=== PATIENT | female | born 2000 | race Caucasian/White ===

== ENCOUNTER 2020-08-08 08:52 | Outpatient (REF) | payer OTHER, SELFPAY ==
[2020-08-09 09:47] LABS: CT PCR NOT DETECTED (Not Detect.); NG PCR NOT DETECTED (Not Detect.)
== END 2020-08-08 08:53 | disposition home or self-care (01) ==
LOC: HO.LAB 08:52
PROVIDERS: Visit Provider Advanced Practice Midwife
DX: Z01.419 Encounter for gynecological examination (general) (routine) without abnormal findings (principal); R10.9 Unspecified abdominal pain; Z11.8 Encounter for screening for other infectious and parasitic diseases; Z11.3 Encounter for screening for infections with a predominantly sexual mode of transmission
CPT/HCPCS: 87491; 87591; 88142

== ENCOUNTER 2020-08-23 10:19 | Outpatient (REF) | payer OTHER, SELFPAY ==
[2020-08-23 10:53] LABS: MANUAL DIFF FLAG NO
[2020-08-23 10:54] LABS: Basophils Percent Auto 0.5 % (0-2); Hemoglobin 12.3 g/dl (12.0-16.0); Imm Gran Abs Auto 0.01 X10*3/uL (0.00-0.03); Imm Gran Pct Auto 0.2 % (0.0-0.4); Lymphocytes Absolute Auto 1.9 X10*3/uL (1.2-4.9); Lymphocytes Percent Auto 45.3 % (20-40); Mean Corpuscular HGB Conc 33.2 g/dl (31.0-35.0); Mean Corpuscular Hemoglobin 30.1 pg (27.0-33.0); Mean Corpuscular Volume 90.5 fL (80-98); Mean Platelet Volume 10.4 fL (9.4-12.3); Monocytes Absolute Auto 0.5 X10*3/uL (0.1-1.2); Monocytes Percent Auto 11.9 % (2-11); Neutrophils Absolute Auto 1.7 X10*3/uL (2.0-8.3); Neutrophils Percent Auto 41.1 % (45-73); Platelet Count 256 X10*3/uL (160-400); Red Blood Count 4.09 X10*6/uL (4.20-5.50); Red Cell Distribution Width 12.2 % (11.0-16.0); White Blood Count 4.1 X10*3/uL (4.8-10.8)
[2020-08-23 11:28] LABS: Blood Urea Nitrogen 12 mg/dL (9-16); Calcium 9.1 mg/dL (8.4-10.2); Estimated Glomerular Filt Rate > 60; Glucose Fasting 85 mg/dL (60-99)
[2020-08-23 11:32] LABS: Anion Gap 11 (12-20); Carbon Dioxide 22 mmol/L (22-29); Chloride 108 mmol/L (96-108); Potassium 4.4 mmol/l (3.3-5.1); Sodium 137 mmol/L (135-145)
== END 2020-08-23 10:20 | disposition home or self-care (01) ==
LOC: HO.LAB 10:19
PROVIDERS: PCP Nurse Practitioner Family; Visit Provider Nurse Practitioner Family
DX: F41.9 Anxiety disorder, unspecified (principal); F32.9 Major depressive disorder, single episode, unspecified
CPT/HCPCS: 36415; 80048; 85025

== ENCOUNTER 2021-08-09 07:50 | Outpatient (REF) | payer OTHER, SELFPAY ==
[2021-08-09 10:54] LABS: MANUAL DIFF FLAG NO
[2021-08-09 10:57] LABS: Basophils Percent Auto 0.6 % (0-2); Eosinophils Absolute Auto 0.1 X10*3/uL (0.0-0.4); Eosinophils Percent Auto 0.9 % (0-4); Hematocrit 37.7 % (37.0-47.0); Hemoglobin 12.7 g/dl (12.0-16.0); Imm Gran Abs Auto 0.02 X10*3/uL (0.00-0.03); Imm Gran Pct Auto 0.4 % (0.0-0.4); Lymphocytes Percent Auto 37.6 % (20-40); Mean Corpuscular HGB Conc 33.7 g/dl (31.0-35.0); Mean Corpuscular Hemoglobin 30.1 pg (27.0-33.0); Mean Corpuscular Volume 89.3 fL (80.0-98.0); Mean Platelet Volume 9.9 fL (9.4-12.3); Monocytes Absolute Auto 0.6 X10*3/uL (0.1-1.2); Monocytes Percent Auto 10.1 % (2-11); Neutrophils Absolute Auto 2.7 x10*3/uL (2.0-8.3); Neutrophils Percent Auto 50.4 % (45-73); Platelet Count 331 X10*3/uL (160-400); Red Blood Count 4.22 X10*6/uL (4.20-5.50); Red Cell Distribution Width 12.2 % (11.0-16.0); White Blood Count 5.4 X10*3/uL (4.8-10.8)
[2021-08-09 11:56] LABS: Alanine Aminotransferase 16 U/L (0-31); Albumin Level 4.3 g/dL (3.5-5.0); Alkaline Phosphatase 50 U/L (39-117); Anion Gap 13 (12-20); Aspartate Amino Transferase 21 U/L (5-31); Bilirubin Total 0.6 mg/dL (0.0-1.0); Blood Urea Nitrogen 10 mg/dL (9-16); Calcium 9.6 mg/dL (8.4-10.2); Carbon Dioxide 23 mmol/L (22-29); Chloride 105 mmol/L (96-108); Cholesterol 172 mg/dL; Estimated Glomerular Filt Rate > 60; Glucose Fasting 82 mg/dL (60-99); HDL Cholesterol 53 mg/dL; LDL Cholesterol Calculated 103 mg/dl; Potassium 4.3 mmol/L (3.3-5.1); Sodium 137 mmol/L (135-145); Total Protein 7.4 g/dL (6.5-8.0); Triglycerides 80 mg/dL
[2021-08-09 12:19] LABS: TSH reflex Free T4 1.89 uIU/mL (0.32-4.0)
[2021-08-14 16:21] LABS: Transglutaminase IgA <1.0 U/mL
== END 2021-08-09 07:51 | disposition home or self-care (01) ==
LOC: HO.WFDLDS 07:50
PROVIDERS: Visit Provider Family Medicine
DX: Z00.00 Encounter for general adult medical examination without abnormal findings (principal); R19.7 Diarrhea, unspecified
CPT/HCPCS: 36415; 80053; 80061; 83516; 84443; 85025

== ENCOUNTER 2021-08-10 18:04 | Outpatient (REF) | payer OTHER, SELFPAY ==
[2021-08-10 20:07] LABS: Leukocytes Stool Qualitative NEGATIVE (NEGATIVE)
[2021-08-11 08:39] LABS: CDiff Gene PCR NEGATIVE (Negative)
== END 2021-08-10 18:05 | disposition home or self-care (01) ==
LOC: HO.LNP 18:04
PROVIDERS: Visit Provider Family Medicine
DX: R19.7 Diarrhea, unspecified (principal)
CPT/HCPCS: 87045; 87046; 87493; 89055

== ENCOUNTER 2021-08-14 07:48 | Outpatient (REF) | payer OTHER, SELFPAY ==
[2021-08-14 14:02] LABS: CT PCR NOT DETECTED (Not Detect.); NG PCR NOT DETECTED (Not Detect.)
== END 2021-08-14 07:49 | disposition home or self-care (01) ==
LOC: HO.LAB 07:48
PROVIDERS: PCP Family Medicine; Visit Provider Advanced Practice Midwife
DX: Z01.419 Encounter for gynecological examination (general) (routine) without abnormal findings (principal); Z20.2 Contact with and (suspected) exposure to infections with a predominantly sexual mode of transmission
CPT/HCPCS: 87491; 87591

== ENCOUNTER 2022-06-13 10:49 | Outpatient (REF) | payer OTHER, SELFPAY ==
[2022-06-13 14:27] LABS: Hematocrit 36.7 % (37.0-47.0); Hemoglobin 12.3 g/dl (12.0-16.0); Mean Corpuscular HGB Conc 33.5 g/dl (31.0-35.0); Mean Corpuscular Hemoglobin 29.8 pg (27.0-33.0); Mean Corpuscular Volume 88.9 fL (80.0-98.0); Mean Platelet Volume 10.6 fL (9.4-12.3); Platelet Count 274 X10*3/uL (160-400); Red Blood Count 4.13 X10*6/uL (4.20-5.50); Red Cell Distribution Width 12.2 % (11.0-16.0); White Blood Count 5.1 X10*3/uL (4.8-10.8)
[2022-06-13 14:45] LABS: Alanine Aminotransferase 16 U/L (0-31); Albumin Level 4.7 g/dL (3.5-5.0); Alkaline Phosphatase 63 U/L (39-117); Anion Gap 14 (12-20); Aspartate Amino Transferase 27 U/L (5-31); Bilirubin Total 2.1 mg/dL (0.0-1.0); Blood Urea Nitrogen 12 mg/dL (9-16); Calcium 10.1 mg/dL (8.4-10.2); Carbon Dioxide 23 mmol/L (22-29); Chloride 108 mmol/L (96-108); Cholesterol 174 mg/dL; Estimated Glomerular Filt Rate > 60; Glucose Fasting 84 mg/dL (60-99); HDL Cholesterol 65 mg/dL; LDL Cholesterol Calculated 104 mg/dl; Sodium 141 mmol/L (135-145); Total Protein 7.3 g/dL (6.5-8.0); Triglycerides 28 mg/dL
[2022-06-13 15:07] LABS: TSH reflex Free T4 0.74 uIU/mL (0.32-4.0)
[2022-06-14 08:25] LABS: HBS Num1 85.77 mIU/mL (0-7.99); HBc Num1 0.09 S/CO (0.00-0.79); Hepatitis B Core Antibody Nonreactive (Nonreactive); Hepatitis B Surface Antigen Negative (Negative); ~HepC Num1 0.07 S/CO (0.00-0.79); ~Hepatitis B Surface Antibody REACTIVE (Nonreactive); ~Hepatitis C Antibody Nonreactive (Nonreactive)
[2022-06-15 07:01] LABS: ~Hepatitis A Antibody IgM Nonreactive (Nonreactive)
== END 2022-06-13 10:50 | disposition home or self-care (01) ==
LOC: HO.WFDLDS 10:49
PROVIDERS: Visit Provider Hospitalist
DX: Z00.00 Encounter for general adult medical examination without abnormal findings (principal); Z57.9 Occupational exposure to unspecified risk factor
CPT/HCPCS: 36415; 80053; 80061; 84443; 85027; 86704; 86706; 86709; 86803; 87340

== ENCOUNTER 2022-08-13 08:50 | Outpatient (REF) | payer OTHER, SELFPAY ==
[2022-08-13 11:57] LABS: Alanine Aminotransferase 12 U/L (0-31); Albumin Level 4.5 g/dL (3.5-5.0); Alkaline Phosphatase 68 U/L (39-117); Aspartate Amino Transferase 20 U/L (5-31); Bilirubin Direct 0.4 mg/dL (0.0-0.5); Bilirubin Total 1.1 mg/dL (0.0-1.0); Total Protein 6.9 g/dL (6.5-8.0)
== END 2022-08-13 08:51 | disposition home or self-care (01) ==
LOC: HO.WFDLDS 08:50
PROVIDERS: Visit Provider Hospitalist
DX: R74.8 Abnormal levels of other serum enzymes (principal)
CPT/HCPCS: 36415; 80076

== ENCOUNTER 2022-10-16 15:04 | Outpatient (REF) | payer OTHER, SELFPAY ==
[2022-10-18 21:32] LABS: TS Negative Control Passed; TS Panel A 1; TS Panel B 0; TS Positive Control Passed; TSpotTB Negative (Negative)
== END 2022-10-16 15:05 | disposition home or self-care (01) ==
LOC: HO.LAB 15:04
PROVIDERS: Visit Provider Family Medicine
DX: Z02.0 Encounter for examination for admission to educational institution (principal)
CPT/HCPCS: 36415; 86481

== ENCOUNTER 2023-08-22 12:34 | Outpatient (REF) | payer OTHER, SELFPAY | END 2023-08-22 12:35 | disposition home or self-care (01) | LOC: HO.LNP 12:34 | PROVIDERS: Visit Provider Advanced Practice Midwife | DX: Z01.419 Encounter for gynecological examination (general) (routine) without abnormal findings (principal) | CPT/HCPCS: 88142 ==

== ENCOUNTER 2023-08-22 12:34 | Outpatient (AMB) | payer OTHER, SELFPAY ==
--- NOTE | 2023-08-22 12:51 | MHC.OFFVIS ---
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 Doing well with no concerns. 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 On Val, no concerns. , sexually active. She denies vaginal itching and irritation. STI screening offered; she declines. Denies family history of breast, ovarian or colon cancer. Last pap smear 2019, negative. She denies any contraindications to control such as: migraines with aura, history of DVT or pulmonary emboli, high blood pressure, liver disease, thrombolic disorders, Lupus, +KVNG, breast cancer, or smoking. [facility] Medical History Raynaud disease Anxiety and depression Family History Maternal Aunt Ovarian cancer Mother Endometriosis Father No problems noted. 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 Sexual orientation: Straight/Heterosexual Gender identity: Female Cognitive needs: No Hearing needs: No Vision needs: No Female Reproductive History Menstrual control method: pills Total pregnancies: 0 Date of last pap smear: 08/08/20 (neg) Review of Systems Const All systems reviewed & are unremarkable except as noted in HPI and below Reports as per HPI Eyes Reports no additional complaints ENT Reports no additional complaints Card Reports no additional complaints Resp Reports no additional complaints GI Reports as per HPI and Reports no additional complaints Reports as per HPI Musc Reports no additional complaints Skin/Breast Reports as per HPI Neuro Reports no additional complaints Psych Reports no additional complaints Endo Reports no additional complaints Alex/Lymph Reports no additional complaints Aller/Immun Reports no additional complaints Physical Exam Vital Signs: Last Vital Signs BP 100/64 08/22/23 12:52 BMI result Body Mass Index 18.7 Const General: cooperative, healthy appearing, no acute distress, well developed and alert Orientation/consciousness: patient oriented x3 HEENT Head: Yes normal to inspection Eyes General: appearance normal, both eyes and all related structures Neck Neck: Yes normal visual inspection Thyroid: Thyroid normal Chest Chest palpation & inspection: normal inspection of the chest and other (no puckering, dimpling, peau de orange, retraction, discharge, masses) Breast/axilla inspection: normal inspection of the breasts Breast/axilla palpation: normal palpation of the breasts Resp Effort & Inspection: normal respiratory effort GI Inspection: Yes normal to inspection Palpation (GI): Soft to palpation Rectal Exam - Female: deferred General: Yes bladder normal to palpation External Female Exam: normal external appearance and normal appearance of the urethra Speculum Exam - Vagina: normal appearance of the vagina, normal palpation and normal vaginal discharge Speculum Exam - Cervix: normal appearance of the cervix and normal palpation Bimanual exam- vagina & uterus: normal bimanual exam, normal palpation, uterine size normal, bladder normal to palpation, normal palpation and non-tender Bimanual Exam- Adnexa, other: no masses Skin General skin exam: no rashes or lesions noted Rashes: no rashes Neuro General: patient oriented x3 Cognition (Neuro): normal cognition Extrem General: Yes normal to inspection Psych Attitude: cooperative Thought process: Normal thought process present Assessment & Plan Assessment & Plan (1) Encounter for well woman exam with routine gynecological exam: Code(s): Z01.419 - Encounter for gynecological examination (general) (routine) without abnormal findings Plan Discussed: Current recommendations for pap smears per ASCCP guidelines. Breast awareness and periodic breast exams. Maintain a healthy lifestyle including a well balanced diet and routine exercise. control hormone use warnings: go to ER if and loss of vision, blindness, severe headache, chest pain or difficulty breathing, severe abdominal pain, or any pain or swelling in an extremity. All of her questions and concerns were addressed to the best of my ability. RTO in one year for annual display director examination. Orders: Orders Pap Smear Today Z01.419 - Encounter for gynecological examination (general) (routine) without abnormal findings Medications: Refilled norethindrone (contraceptive) (Val) 0.35 mg PO DAILY 84 tabs 4RF Coding Level of Care Code Est Pt Prev Care 18-39y(91967) Diagnoses Encounter for well woman exam with routine gynecological exam Z01.419
[2023-08-22 12:52] VITALS: BP 100/64; BMI 18.7
== END 2023-08-22 13:22 | disposition home or self-care (01) ==
PROVIDERS: Visit Provider Advanced Practice Midwife
DX: Z01.419 Encounter for gynecological examination (general) (routine) without abnormal findings (principal)
CPT/HCPCS: 99395

== ENCOUNTER → 2024-03-13 08:23 | Outpatient (AMB) | payer OTHER, SELFPAY ==
[2024-03-13 08:25] VITALS: PULSE 88; O2SAT 99; BMI 18.7
--- NOTE | 2024-03-13 08:25 | MHC.OFFWIV ---
Intake Vital Signs 03/13/24 08:25 Height 5 ft 8 in Weight 123 lb BMI 18.7 Pulse 88 Pulse Source Pulse Oximeter Pulse Oximetry (%) 99 Oxygen Delivery Method Room Air Intake Visit Reasons: Poison jeancarlos Patient Tobacco Use Status: Never used Tobacco Allergies No Known Allergies Allergy (Verified 03/13/24 08:26) Medication List - Last Reconciled 03/13/24 by Vanessa Campbell, CLINICAL QUALITY ASSURANCE ASSOCIATE-BC norethindrone (contraceptive) (Val) 0.35 mg PO DAILY HPI HPI Comments History of Present Illness Details Here today with a complaints of a poison jeancarlos rash affecting her face and left arm. Reports that this started yesterday after exposure to poison jeancarlos while in the [place] chasing her dog. The fresh for started around her right eye. Then progress to around the left eye. And down the right side of her face. A little bit on her neck. One patch on her left arm. She offers no visual complaints. No breathing concerns. In addition to tech new scrubs, treatment at home includes Advil which seemed to help some of the swelling. Plan for a prednisone taper. [facility] Medical History Raynaud disease Anxiety and depression Family History Maternal Aunt Ovarian cancer Mother Endometriosis Father No problems noted. 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 Some intact blisters around left periorbit. Some mild edema of upper and lower lid on the right. No visual deficits. No signs of secondary cellulitis. Respirations are normal. Managing secretions. Talking in full sentences. One single patch on the left posterior lower arm. Assessment & Plan Assessment & Plan (1) Poison jeancarlos dermatitis: Code(s): L23.7 - Allergic contact dermatitis due to plants, except food Plan: . Medications: New prednisone 5 tabs x 2 days, 4 tabs x 2 days, 3 tabs x 2 days, 2 tabs x 2 days, 1 tab x 2 days and then STOP. 10 mg PO DIRECTED 30 tabs 0RF 10 days Patient Instructions: Advised to take the medication daily with food. If new lesions crop up while on the taper advised to return to the office as we may need to hold the taper and/or extend the taper to prevent recurrence. Advised to cover the areas to prevent spread using something like a Tegaderm. Wash linen to also help prevent spread. Continue to use the [id number] skin scrubs to help protect the rest of your skin. Do your best to avoid contact. Coding Level of Care Code Est Pt Level 3 (68642) Diagnoses Poison jeancarlos dermatitis L23.7
== END ==
PROVIDERS: PCP Internal Medicine; Visit Provider Nurse Practitioner Family
DX: L23.7 Allergic contact dermatitis due to plants, except food (principal)
CPT/HCPCS: 99213

== ENCOUNTER 2024-08-28 11:15 | Outpatient (AMB) | payer OTHER, SELFPAY ==
--- NOTE | 2024-08-28 11:27 | A.OFFVIS_ITS ---
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 She has been on control pills since she was a teenager because of severe severe painful crampy debilitating menses and her project management it specialist put her on control pills also citing a concern for family history of endometriosis sent to prevent scarring for the future. She has not had a periods since 2020 and she has been managed on some version of continuous so almost continuous OCPs and several years was ago switched to norethindrone only OCPs by provider secondary to her history of Raynauds. She loves not having a. She feels great she also knows that weight is an issue and she has been training hard because she has been doing a stint at the [employer]. And she lost weight during this time despite efforts to maintain it and felt her breast tissue diminish etc.. She is sexually active with her but has zero concerns about STIs and declines testing she is not due for Pap smear this visit her last Pap smear was negative. She has no negative side effects to the OCPs other than the aforementioned lack menses which is for her not really a negative but she did want to mentione it and discuss it. On questioning she and her are thinking about starting a family but he is going to be deployed in October and we will be gone for year and they are hoping to spend some time together when he comes home and then start trying to have a family.. She is in fact somewhat dreading the return of regular menses when she goes off OCPs to try and conceive. [facility] Medical History Raynaud disease Anxiety and depression Family History Maternal Aunt Ovarian cancer Mother Endometriosis Father No problems noted. 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 Sexual orientation: Straight/Heterosexual Gender identity: Female Cognitive needs: No Hearing needs: No Vision needs: No Female Reproductive History Menstrual Age of Menarche: 13 Duration of menses: other control method: pills Total pregnancies: 0 Date of last pap smear: 09/12/23 (neg.neg) History of abnormal pap smear: No Physical Exam Vital Signs: Last Vital Signs BP 118/68 08/28/24 11:29 BMI result Body Mass Index 19.5 Const General: healthy appearing, comfortable, no acute distress, well developed and alert Nutritional Appearance: average body habitus Orientation/consciousness: patient oriented x3 Limitations: no limitations HEENT Head: Yes normocephalic Neck Neck: Yes normal visual inspection Chest Chest palpation & inspection: normal inspection of the chest Breast/axilla inspection: normal inspection of the breasts and normal inspection of the axillae Breast/axilla palpation: normal palpation of the breasts and normal palpation of the axillae Resp Effort & Inspection: normal respiratory effort GI Inspection: Yes normal to inspection, No Abdominal wall edema and No distended Palpation (GI): Soft to palpation and nontender Other: Normal pink and moist very normal appearing flocular white discharge. Cervix nulliparous smooth healthy mobile nontender anterior uterus is slightly posterior but midposition neither anteverted retroverted adnexa nontender good tone w Kegel General: Yes bladder normal to palpation External Female Exam: normal external appearance and normal appearance of the urethra Speculum Exam - Vagina: normal appearance of the vagina, normal palpation and normal vaginal discharge Speculum Exam - Cervix: normal appearance of the cervix, normal palpation and nontender Bimanual exam- vagina & uterus: normal bimanual exam, normal palpation, uterine size normal, bladder normal to palpation, consistency normal, normal palpation, uterine mobility normal, uterine shape normal, No Cervical tenderness present, non-tender and no cervical motion tenderness Bimanual Exam- Adnexa, other: normal adnexae, no masses, normal and No adnexal tenderness Neuro General: patient oriented x3 Assessment & Plan Assessment & Plan (1) Well woman exam with routine gynecological exam: Code(s): Z01.419 - Encounter for gynecological examination (general) (routine) without abnormal findings Category: Medical (2) Cervical cancer screening: Comment: 08/22/2023 Pap is negative. Code(s): Z12.4 - Encounter for screening for malignant neoplasm of cervix Category: Medical (3) Painful menstrual periods: Comment: Has been managed on continuous OCPs for years with resultant absence of menstruation and is happy with this for now. 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 She has been on control pills since she was a teenager because of severe severe painful crampy debilitating menses and her project management it specialist put her on control pills also citing a concern for family history of endometriosis sent to prevent scarring for the future. She has not had a periods since 2020 and she has been managed on some version of continuous so almost continuous OCPs and several years was ago switched to norethindrone only OCPs by provider secondary to her history of Raynauds. She loves not having a. She feels great she also knows that weight is an issue and she has been training hard because she has been doing a stint at the [employer]. And she lost weight during this time despite efforts to maintain it and felt her breast tissue diminish etc.. She is sexually active with her but has zero concerns about STIs and declines testing she is not due for Pap smear this visit her last Pap smear was negative. She has no negative side effects to the OCPs other than the aforementioned lack menses which is for her not really a negative but she did want to mentione it and discuss it. On questioning she and her are thinking about starting a family but he is going to be deployed in October and we will be gone for year and they are hoping to spend some time together when he comes home and then start trying to have a family.. She is in fact somewhat dreading the return of regular menses when she goes off OCPs to try and conceive. Reviewed all of the above with her then is quite as understandable that with her low BMI and heavy workout regimen with being at the [employer] the she would be without menses for so many years also because of the endometrial suppression of the OCPs. Given all this while on the face of it at 1st blush it maybe concerning, it is completely understandable as she is being managed with suppressive hormones at this time. When it comes time for her to go off OCPs and allow for return of menses, discussed that it would be recommended for her to really keep very close track of her symptoms and discharge and return to fertility in every way, and wants full menses return to attempt to conceive. Discussed possible ways of framing the change in experience of menses. We will continue on these norethindrone only OCPs as they are serving her very well at this time prescription sent to her pharmacy of choice. She has no other health concerns this tone discussed eating healthy and adding a multivitamin with folic acid prior to being open to conception. Medications: Refilled norethindrone (contraceptive) (Val) 0.35 mg PO DAILY 84 tabs 4RF Coding Level of Care Code Est Pt Prev Care 18-39y(99778) Diagnoses Well woman exam with routine gynecological exam Z01.419 Cervical cancer screening Z12.4 Painful menstrual periods N94.6 control counseling Z30.09
[2024-08-28 11:29] VITALS: BP 118/68; BMI 19.5
== END 2024-08-28 12:11 | disposition home or self-care (01) ==
LOC: HO.HWSM 11:15
PROVIDERS: PCP Internal Medicine; Visit Provider Advanced Practice Midwife
DX: Z01.419 Encounter for gynecological examination (general) (routine) without abnormal findings (principal); Z12.4 Encounter for screening for malignant neoplasm of cervix; N94.6 Dysmenorrhea, unspecified; Z30.09 Encounter for other general counseling and advice on contraception
CPT/HCPCS: 99395

== ENCOUNTER → 2024-08-28 11:15 | Outpatient (BNVA) | payer OTHER, SELFPAY | PROVIDERS: PCP Internal Medicine; Visit Provider Advanced Practice Midwife ==

== ENCOUNTER 2024-10-29 08:53 | Outpatient (AMB) | payer OTHER, SELFPAY ==
--- NOTE | 2024-10-29 12:31 | A.OFFPC_ITS ---
Intake Visit Reasons: re-establish care/ PE request Allergies No Known Allergies Allergy (Verified 10/29/24 12:32) Medication List - Last Reconciled 10/29/24 by GUERLINE Espinoza- norethindrone (contraceptive) (Val) 0.35 mg PO DAILY Tobacco use date assessed: 10/29/24 Dental Screening Dental Screen Date: 10/29/24 Did you have a dental visit in the last 12 months?: Yes Did you have a dental problem in the last 6 months where you did not have access to dental care?: No Was dental information given to patient?: Patient has dentist HPI HPI Comments History of Present Illness Details TELEVIDEO USING DOXProxima CancionITY 23-year-old female with generalized anxi ety disorder, major depressive disorder, Raynaud's disease, family history of ovarian cancer (maternal great aunt), elevated bilirubin, family hx of pancreatic cancer (paternal uncle age 72) SurgHx: None FHx: Mom and her sisters: Endometriosis. Great Aunt: Lung Ca & Ovarian. mGF: Heart disease, Diabetes SocHx: Nonsmoker. 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 She reports attempting ywxp-nrv-htsckhu treatments from [facility] with no success; instead, she has noticed an increase in the number of warts. The condition was first noted prior to this visit, and no significant interventions have been successful in managing the warts. The patient sought further advice on possible more aggressive treatment options. CHICHI/MDD well controlled w/o meds or counseling. Health Maintenance - Regular annual physical examination fo r occupational requirements. - Discussion regarding potential future laboratory evaluations, including non- fasting blood work for a comprehensive health assessment, considering past elevated bilirubin. - Encouragement to maintain annual gynec ological examinations. - Negative anxiety and depression screen ing. - Flu vaccination discussed but not perf ormed; patient recently experienced flu- like symptoms. - Counseling on moderating alcohol consu mption for health optimization. - Inquiry on lack of need for STD screen ing given current marital status. Social History - for three years. - Engages in light alcohol consumption, primarily wine, approximately five days a week, with acknowledgment of intent to reduce intake for health reasons. - Has a stepdaughter and expressed satis faction with current family status. - Employed Review of Systems - General: Denies little interest or ple asure in activities; negative for feeling down, depressed, or hopeless. - Sleep: Denies trouble falling asleep o r staying asleep. - Neurological/Psychiatric: Denies poor appetite, feelings of worthlessness, trouble concentrating, or any suicidal ideation. Reports occasional, context- appropriate nervousness but controls it well. Denies difficulty relaxing or respiratory symptoms. - Constitutional: Feeling tired due to r ecent cold; denies unexplained weight changes or fever. Physical Exam limited by video visit Awake alert NAD Smiling, engaging and appropriate Speaking in full sentences Mood and affect appropriate Discussion Notes During the encounter, I discussed the management options for the patient's plantar warts, explaining the referral process to podiatry for professional intervention. I provided the name and contact details of the dixonac operator, Dr. Murillo, and facilitated the referral. I also affirmed the protocol for uploading annual physical form via the portal for occupational documentation. Health maintenance topics included a discussion of alcohol consumption, emphasizing moderation for potential health benefits. I reassured the patient regarding negative screenings for anxiety and depression following her previous history. I reminded the patient about the importance of annual check-ins to maintain active patient status, citing office policy. Lastly, I encouraged her to pursue her planned laboratory work for a comprehensive health check. Plan - Verrucae plantaris Plantar Warts): I tierra rojas referred the patient to podiatry for a definitive evaluation and removal of the plantar warts on the left heel by Dr. Murillo. Patient has agreed to contact the office to arrange a visit. - Health maintenance labs: I ordered a p prince of non-fasting blood tests including complete blood count, liver function tests noting prior elevated bilirubin, and screening for kidney, electrolyte, thyroid function, , vitamin D, and diabetes. - Psychosocial health: Screenings for de pression and anxiety were conducted and found to be negative; no further action required currently. Encouraged continued health monitoring. - Annual exam requirement: Patient to in itiate annual visitation to avoid new patient scheduling delays. - Alcohol consumption: Discussed moderat ion and potential health impacts. No immediate intervention necessary. - Chronic conditions and risk factors: D ocumented family history of cancer for ongoing awareness and monitoring. Patient was informed and verbally consented to the use of an ambient scribe for clinic note documentation during this visit. [facility] Medical History (Updated 10/29/24 @ 14:33 by [facility] Anxiety and depression Elevated liver enzymes Raynaud disease Family History (Updated 10/29/24 @ 12:55 by Vanessa Campblel [facility]) Maternal Aunt Ovarian cancer Mother Endometriosis Father No problems noted. 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 1. Little interest or pleasure in doing things: not at all 2. Feeling down, depressed, or hopeless: not at all 3. Trouble falling or staying asleep, or sleeping too much: not at all 4. Feeling tired or having little energy: not at all 5. Poor appetite or overeating: not at all 6. Feeling bad about yourself - or that you are a failure or have let yourself or your family down: not at all 7. Trouble concentrating on things, such as reading the newspaper or watching television: not at all 8. Moving or speaking so slowly that other people could have noticed. Or the opposite - being so fidgety or restless that you have been moving around a lot more than usual: not at all 9. Thoughts that you would be better off or of hurting yourself in some way: not at all Total score: 0 Depression Screening Interpretation: Negative Depression Screening Done: Yes 43177 - PHQ-9 Billing: Yes Source: Developed by Drs. Kvng L. Charlotte Joe, Luis F Rodriguez and colleagues, with an educational jensen from [employer]. Thrive Questionnaire Date Thrive assessed: 10/19/24 I am a: Patient What is your living situation today?: I have a steady place to live Within the past 12 months, did the food you bought not last and you didn't have the money to get more?: Never true Within the past 12 months, did you worry whether your food would run out before you got money to buy more?: Never true Do you have trouble paying for medicines?: No Do you have trouble getting transportation to medical appointments?: No Do you have trouble paying your heating and electricity bill?: No Do you have trouble taking care of your child, family member or friend?: No Do you have trouble with day-to-day activities such as bathing, preparing meals, shopping, managing finances, etc.?: No Are you currently unemployed and looking for a job?: No Are you interested in more education?: Yes Please select the resources that you would like help with: None Currently or been in a relationship where the following occur: No concerns reported THRIVE Score: 0 AUDIT C Alcohol Use Questionnaire (AUDIT-C) 1. How often do you have a drink containing alcohol?: 4 or more times a week 2. How many drinks containing alcohol do you have on a typical day when you are drinking?: 3 or 4 3. How often do you have six or more drinks on one occasion?: Less than monthly Total Score: 6 Score Reviewed/Action Taken: Yes CHICHI-7 AMB Questionnaire CHICHI-7 Date CHICHI - 7 assessed: 10/29/24 Feeling nervous, anxious, or on edge: 1 = Several days Not being able to stop or control worryin = Not at all Worrying too much about different things: 0 = Not at all Trouble relaxin = Not at all Being so restless that it is hard to sit still: 0 = Not at all Becoming easily annoyed or irritable: 0 = Not at all Feeling afraid as if something awful might happen: 0 = Not at all Total CHICHI-7 score (0-4 normal; 5-9 mild; 10-14 moderate; 15-21 severe): 1 Source: Developed by Charlotte Hollingsworth, Luis F Rodriguez and colleagues, with an educational jensen from [employer]. CHICHI-7 Assessment Billing CHICHI-7 Assessment Tool: CHICHI-7 Assessment 40121 Physical exam (Primary Care) Tobacco/Smoking Status: Tobacco use Status Tobacco use date assessed 06/13/22 08/13/22 08:29 Patient Tobacco Use Status Never used Tobacco 03/13/24 08:27 e-Cigarette/Vaping Use Never Used 08/22/23 13:22 Depression Screening Interpretation: Negative Thrive Assessment: Date of Thrive Assessment Date Thrive assessed 10/19/24 10/22/24 11:51 Currently or been in a relationship where the following occur: No concerns reported Telehealth Telehealth Telehealth Platform: [employer] Location of provider rendering services: practice address Location of patient: address on file Patient Identification confirmed using: Name, : Yes Telehealth method: video Patient verbally consented to treatment: Yes Patient verbally consented to billing insurance company: Yes Patient informed of any privacy concerns related to visit: Yes Minutes spent on Phone/Video with Pt.: 18 Coding Level of Care Code New Pt Prev Care 18-39yr(62195 Diagnoses Encounter for general adult medical examination without abnormal findings Z00.00 CHICHI (generalized anxiety disorder) F41.1 Mild episode of recurrent major depressive disorder F33.0 Major depression episode severity: mild Elevated bilirubin R17 Family history of ovarian cancer Z80.41 Plantar wart of left foot B07.0 Laboratory exam ordered as part of routine general medical examination Z00.00 Family history of pancreatic cancer Z80.0 Additional Codes PHQ-9 - 04457 - PHQ-9 Billing: Yes ([id number]) CHICHI-7 Assessment Billing - CHICHI-7 Assessment Tool: CHICHI-7 Assessment 71388 ([id number]) Assessment & Plan Assessment & Plan (1) Encounter for general adult medical examination without abnormal findings: Code(s): Z00.00 - Encounter for general adult medical examination without abnormal findings (2) CHICHI (generalized anxiety disorder): Code(s): F41.1 - Generalized anxiety disorder Category: Medical (3) MDD (major depressive disorder), recurrent episode: Code(s): F33.9 - Major depressive disorder, recurrent, unspecified Category: Medical Qualifiers: Major depression episode severity: mild Qualified Code(s): F33.0 - Major depressive disorder, recurrent, mild (4) Elevated bilirubin: Code(s): R17 - Unspecified jaundice Category: Medical (5) Family history of ovarian cancer: Comment: MATERNAL GREAT AUNT Code(s): Z80.41 - Family history of malignant neoplasm of ovary Category: Medical (6) Plantar wart of left foot: Code(s): B07.0 - Plantar wart Category: Medical (7) Laboratory exam ordered as part of routine general medical examination: Code(s): Z00.00 - Encounter for general adult medical examination without abnormal findings Category: Medical (8) Family history of pancreatic cancer: Comment: paternal uncle Code(s): Z80.0 - Family history of malignant neoplasm of digestive organs Category: Medical Plan . Orders: Orders Complete Blood Count no Diff Today R17 - Unspecified jaundice, Z00.00 - Encounter for general adult medical examination without abnormal findings Comprehensive Met. Panel Today R17 - Unspecified jaundice, Z00.00 - Encounter for general adult medical examination without abnormal findings Hemoglobin A1c Today R17 - Unspecified jaundice, Z00.00 - Encounter for general adult medical examination without abnormal findings Lipid Panel Today R17 - Unspecified jaundice, Z00.00 - Encounter for general adult medical examination without abnormal findings Microalbumin, Random (w Creat) Today R17 - Unspecified jaundice, Z00.00 - Encounter for general adult medical examination without abnormal findings TSH reflex Free T4 Today R17 - Unspecified jaundice, Z00.00 - Encounter for general adult medical examination without abnormal findings Vitamin B12 and Folate Today R17 - Unspecified jaundice, Z00.00 - Encounter for general adult medical examination without abnormal findings Vitamin D 25-OH Total Today R17 - Unspecified jaundice, Z00.00 - Encounter for general adult medical examination without abnormal findings Referrals Podiatry Referral B07.0 - Plantar wart Patient Instructions: Patient Instructions - Call [facility] to schedule a consultation regarding the plantar warts on the left heel. - Upload your job-related physical examination form to the patient portal for completion. - Consider reducing alcohol consumption to improve overall health. - Visit the lab for non-fasting blood work at your convenience; no appointment is necessary. - Continue with annual data coordinator appointments and maintain routine dental care with [facility]. - Reach out with any changes in health status or concerns. Walk-In Care (Urgent Care): We Make it Easy Walk-in for urgent medical issues such as: ? Seasonal Allergies ? Insect Bites ? Cough ? Diarrhea ? Acute Asthma Attacks ? Back, Knee or Joint Pain ? Ear Infection ? Fever without a Rash ? Headaches ? Nausea ? [place], Rash or Skin Irritation ? Sore Throat ? Sports Physicals ? Vomiting Most insurances are accepted. Patients do not need to be part of the [facility] to seek care at the walk-in clinic. Locations [address] , [place] [address] ? [phone] [facility] Walk-In Care in [place] provides services to ages 18 and over. Open Saturday-Saturday: 8 a.m. to 5 p.m. and Saturday: 9 a.m. to 3 p.m.* *Hours may vary due to staffing availability. To confirm Walk-In Care hours in [place], please call [phone]. [address] [place] [id number] ? [phone] [facility] Walk-In Care in [place] provides services to ages 12 and over. Open Saturday-Saturday: 8 a.m. to 5 p.m. Hours may vary due to staffing availability. To confirm Walk-In Care hours in [place], please call [phone]. LABORATORY SERVICES: [facility] Lab ? Primary Location [address] [place] [address] Saturday through Saturday 6:00 AM ? 5:00 PM Saturday 7:00 AM ? 11:00 AM* [phone] [facility] Lab is centrally located near the front entrance of the [facility] for easy outpatient access. Convenient parking is provided for outpatients. *Hours may vary due to staffing availability. To confirm Laboratory hours for a [place] location, please call [phone]. Offsite Location For your convenience, we offer offsite laboratory draw stations at the following locations: [address] [place] [address] ? [facility] [address], [address] [place] Saturday through Saturday 7:30 AM ? 1:00 PM* [phone] *Hours may vary due to staffing availability. To confirm Laboratory hours for any location, please call [phone]. [place] ? [address], [place] Saturday through Saturday 6:00 AM ? 3:30 PM* Saturday 6:30 AM ? 3 PM* [phone] *Hours may vary due to staffing availability. To confirm Laboratory hours for any location, please call [phone]. [address] [facility] Saturday through Saturday 7:30 AM ? 4:00 PM* [phone] *Hours may vary due to staffing availability. To confirm Laboratory hours for any location, please call [phone]. [address] [facility] Saturday through 9:00 AM ? 4:00 PM* *Hours may vary due to staffing availability. To confirm Laboratory hours for any location, please call [phone]. Appointments are not necessary. Walk-ins are welcome. Like all the departments throughout the [facility], our Lab undergoes frequent reviews to ensure the quality and accuracy of test results, and our staff takes special pride in its status as a nationally accredited facility. Patient Portal: ONE PATIENT. ONE RECORD. BETTER CARE. [facility] has a fully integrated, cutting- edge mobile electronic health information system that has revolutionized the way we care for our patients and manage our organization. This system improves communication and coordination enabling us to provide safe, higher-quality care, and an overall positive experience for staff and patients. Our first priority, as always, is to deliver the highest quality care possible. The system is running in the background supporting that priority. This portal is for all [facility] services and practices. If you are experiencing any technical difficulties with enrolling or logging into the Patient Portal please complete the [facility] Patient Portal Technical Support Form. [facility] now offers a new secure on-line interactive tool for patients to review their health information ? ?Patient Portal. This interactive web portal will enable patients and their families to take an active role in their care by providing easy, secure access to their health information via the internet. The Patient Portal provides patients with instant access to their health information, including laboratory results, medications, allergies, demographic information, visit history, and more. In addition to managing their own care, parents and health care proxies with authorized consent will appreciate the ability to access the records of those individuals for whom they provide care. Please note: if you wish to gain access (Proxy) to another patient?s portal, you will be required to come to the Medical Records Department in person at [facility]. Both the patient giving proxy access and the proxy will need to provide photo identification and complete the appropriate authorization. The Patient Portal also allows track their appointments online. The [facility] Patient Portal also saves patients time by allowing them to submit updates to their demographic and contact information prior to their visits. Portal email notifications will also alert patients to any new activity on their portal, such as test results and new appointments. In order to initially enroll in the [facility] Patient Portal, you will need to enter some required information including the following: * your [facility] Medical Record number * your personal home email address * name * date of Please note: In order to enroll in the [facility] Patient Portal, we need to have your email address on file in your electronic medical record. ?The email address needs to be specific for one person (yourself) in order for your Portal enrollment to be successful. ?You can update your email address in person with our Registration staff when you are registering for a hospital visit. ?Otherwise, you will need to come to the Health Information Management (Medical Records) Department at [facility]. ?We are open from Saturday ? Saturday from 7:30 a.m. ? 4:30 p.m. ?You will be required to present a photo id. Once you have successfully enrolled in the Patient Portal, you will receive a one-time user id and password for the Portal, sent to your email address. ?This will allow you to log into the Patient Portal within 99 hrs and reset your own logon id and password, and define personal security questions. ?Once your permanent login and password have been set, you can log into the [facility] Patient Portal at any time via the blue button above or from the Portal Logon button on any page of the [facility] website. [facility] encourage all of our patients to enroll in Patient Portal as it presents a valuable opportunity for patients and their families to actively participate in their care and stay healthy Welcome to [facility]. ?We look forward to working with you.
== END 2024-10-29 14:38 | disposition home or self-care (01) ==
LOC: HO.HMCFM 08:53
PROVIDERS: PCP Nurse Practitioner Family; Visit Provider Nurse Practitioner Family
DX: Z00.00 Encounter for general adult medical examination without abnormal findings (principal); F41.1 Generalized anxiety disorder; F33.0 Major depressive disorder, recurrent, mild; R17 Unspecified jaundice; Z80.41 Family history of malignant neoplasm of ovary; B07.0 Plantar wart; Z80.0 Family history of malignant neoplasm of digestive organs

== ENCOUNTER → 2024-10-29 08:53 | Outpatient (BNVA) | payer OTHER, SELFPAY | PROVIDERS: PCP Nurse Practitioner Family; Visit Provider Nurse Practitioner Family | DX: Z00.00 Encounter for general adult medical examination without abnormal findings (principal); F41.1 Generalized anxiety disorder; F33.0 Major depressive disorder, recurrent, mild; R17 Unspecified jaundice; B07.0 Plantar wart; Z80.0 Family history of malignant neoplasm of digestive organs; Z80.41 Family history of malignant neoplasm of ovary | CPT/HCPCS: 96127 ==

== ENCOUNTER 2024-11-03 09:07 | Outpatient (REF) | payer OTHER, SELFPAY ==
[2024-11-03 11:11] LABS: Hematocrit 39.3 % (37.0-47.0); Hemoglobin 13.2 g/dl (12.0-16.0); Mean Corpuscular HGB Conc 33.6 g/dl (31.0-35.0); Mean Corpuscular Hemoglobin 30.2 pg (27.0-33.0); Mean Corpuscular Volume 89.9 fL (80.0-98.0); Mean Platelet Volume 9.8 fL (9.4-12.3); Platelet Count 336 X10*3/uL (160-400); Red Blood Count 4.37 X10*6/uL (4.20-5.50); Red Cell Distribution Width 12.6 % (11.0-16.0); White Blood Count 5.4 X10*3/uL (4.8-10.8)
[2024-11-03 11:32] LABS: Estimated Average Glucose 91 mg/dL; Hemoglobin A1C 98.2179 umol/L; Hemoglobin A1c % 4.8 % (<6.0); Total Hemoglobin (HGBA1C) 3349.9824 umol/L
[2024-11-03 11:43] LABS: Alanine Aminotransferase 14 U/L (0-31); Albumin Level 4.6 g/dL (3.5-5.0); Alkaline Phosphatase 51 U/L (39-117); Anion Gap 8 (12-20); Aspartate Amino Transferase 23 U/L (5-31); Bilirubin Total 1.3 mg/dL (0.0-1.0); Blood Urea Nitrogen 14 mg/dL (9-16); Calcium 9.5 mg/dL (8.4-10.2); Carbon Dioxide 27 mmol/L (22-29); Chloride 110 mmol/L (96-108); Cholesterol 178 mg/dL (<200); Estimated Glomerular Filt Rate > 60; Glucose Random 96 mg/dL (60-115); HDL Cholesterol 68 mg/dL (>40); LDL Cholesterol Calculated 101 mg/dL (<100); Potassium 3.9 mmol/L (3.3-5.1); Sodium 141 mmol/L (135-145); TSH reflex Free T4 0.81 uIU/mL (0.32-4.0); Total Protein 7.7 g/dL (6.5-8.0); Triglycerides 45 mg/dL (<150); Vitamin D 25-OH Total 47.9 ng/mL (>30)
[2024-11-03 12:00] LABS: Folate 4.4 ng/mL (> or = 4.0); Vitamin B12 587 pg/mL (200-900)
[2024-11-03 18:59] LABS: Microalbumin Urine < 5.0 mg/L
== END 2024-11-03 09:08 | disposition home or self-care (01) ==
LOC: HO.WFDLDS 09:07
PROVIDERS: Visit Provider Nurse Practitioner Family
DX: Z00.00 Encounter for general adult medical examination without abnormal findings (principal); R17 Unspecified jaundice; Z13.1 Encounter for screening for diabetes mellitus
CPT/HCPCS: 36415; 80053; 80061; 82306; 82570; 82607; 82746; 83036; 84443; 85027